=== PATIENT | female | born 1975 | race Caucasian/White ===

== ENCOUNTER 2019-04-30 17:10 | Inpatient (IN) | payer OTHER ==
[~2019-04-30] VITALS: Ht 160 cm; Wt 59.0 kg
[2019-04-30] MEDS ORDERED: NORT10CA PO (17:21)
[2019-04-30] MEDS ORDERED: ALPR0.255 PO (17:21)
[2019-04-30] MEDS ORDERED: CETI-102 PO (17:21)
--- NOTE | 2019-04-30 17:40 | NUR ---
at bedside to see and examine patient.
[2019-04-30] MEDS ORDERED: DIAZEPAM 2 MG TABLET PO ONE (18:00)
[2019-04-30 18:08] LABS: BASOPHILS % (AUTO) 0.2 % (0.0-2.0); EOSINOPHILS # (AUTO) 0.2 K/uL (0.0-0.7); EOSINOPHILS % (AUTO) 2.3 % (0.0-7.0); HEMATOCRIT 41.9 % (31.2-41.9); HEMOGLOBIN 13.8 g/dL (10.9-14.3); LYMPHOCYTES # (AUTO) 1.9 K/uL (20.0-40.0); LYMPHOCYTES % (AUTO) 24.7 % (20.5-51.5); MEAN CORPUSCULAR HEMOGLOBIN 30.8 uug (24.7-32.8); MEAN CORPUSCULAR HGB CONC 33 g/dL (32.3-35.6); MEAN CORPUSCULAR VOLUME 93.5 fL (75.5-95.3); MONOCYTES # (AUTO) 0.6 K/uL (2.0-10.0); MONOCYTES % (AUTO) 7.2 % (0.0-11.0); NEUTROPHILS # (AUTO) 5.1 K/uL (1.8-8.9); NEUTROPHILS % (AUTO) 65.6 % (38.5-71.5); PLATELET COUNT (AUTO) 171 K/uL (179-408); RED BLOOD CELL COUNT(AUTO) 4.49 MIL/uL (3.63-4.92); WHITE BLOOD COUNT (AUTO) 7.7 K/uL (3.8-11.8)
[2019-04-30 18:14] LABS: CREATININE 0.9 mg/dL (0.6-1.3); POTASSIUM 4.7 mmol/L (3.5-5.1)
[2019-04-30 18:25] LABS: BILIRUBIN,DIRECT 0.1 mg/dL (0.0-0.2); BILIRUBIN,TOTAL 0.4 mg/dL (0.2-1.0); TOTAL PROTEIN, SERUM 6.6 g/dL (6.4-8.2)
--- NOTE | 2019-04-30 18:30 | NUR ---
Patient seen by
[2019-04-30] MEDS ORDERED: DIAZEPAM 5 MG TABLET ONE (18:37)
--- NOTE | 2019-04-30 18:38 | NUR ---
Sterile urine cup was give. Clean catch urine was requested.
[2019-04-30 18:50] LABS: *BILIRUBIN,URIN 1+ (NEGATIVE); *BLOOD, URINE NEGATIVE (NEGATIVE); *COLOR,URINE YELLOW (YELLOW); *KETONES,URINE NEGATIVE (NEGATIVE); *UROBILINOGEN,URINE 0.2 E.U./dl (NORMAL); LEUKOCYTE ESTERASE ,URINE 1+ (NEGATIVE); NITRITE, URINE NEGATIVE (NEGATIVE); PH,URINE 8.5 (5.0-8.0); UGLUCOSE NEGATIVE (NEGATIVE)
[2019-04-30 18:54] LABS: *URINE HCG, QUAL NEGATIVE (NEGATIVE)
[2019-04-30 18:59] LABS: *CLARITY,URINE SLIGHTLY HAZY (CLEAR)
--- NOTE | 2019-04-30 19:00 | NUR ---
RECEIVED PT HAND OFF AND SBAR FROM OUTGOING DAY SHIFT RN
[2019-04-30 19:01] LABS: BACTERIA,URINE FEW /HPF (NONE SEEN); RBC,URINE 0-3 /HPF (0-3); SQUAMOUS EPITHELIAL CELL,UR MODERATE /HPF (NONE SEEN)
--- NOTE | 2019-04-30 19:13 | NUR ---
Report given to incoming R.N
[2019-04-30] MEDS ORDERED: CEFTRIAXONE 1 G in IV DEXTROSE 5% 50 ML IV ONE (19:45)
[2019-04-30] MEDS ORDERED: CEFTRIAXONE /D5W 50ML IVPB **ER PYXIS IV ONE (20:04)
--- NOTE | 2019-04-30 20:20 | NUR ---
PT WILL BE ADMITTED TO [facility] UNDER DR CASILLAS DUE TO BACK PAIN/ PYELONEPHRITIS
--- NOTE | 2019-04-30 20:45 | NUR ---
ATTEMPTED TO CALL FOR HAND OFF. PABLO STATES: "CARLIN RN DID NOT EVENT PRODUCER THE PHONE, MAYBE CARLIN RN NOT AVAILABLE. MAYBE HE IS BUSY WITH A PT AND WILL CALL YOU BACK " PT BELONGINGS SIGNED AND CONFIRMED. PT DENIES PAIN IF NOT AMBULATING/ MOVING/CHANING POSITION PT STATES DECREASED NAUSEA, DENIES EMESIS AT THIS TIME SIDERAILSX2 UP, BED AT LOWEST POSITION LEFT AC SALINE LOCK INTACT W/ G22
--- NOTE | 2019-04-30 21:10 | NUR ---
HAND OFF AND SBAR GIVEN TO CARLIN RN PT IS STILL ON SEMI BARAJAS'S, SUPINE, PT SIDERAILSX2 UP, BED AT LOWEST POSITION PT NAD DENIES PAIN AT THIS TIME WILL BE TRANSPORTED VIA [facility]
--- NOTE | 2019-04-30 21:25 | NUR ---
PT TRANSPORTED VIA GURNEY ACCOMPANIED BY ER HOSPICE AIDE SIDERAILSX2 UP, BED AT LOWEST POSITION ABLE TO TOLERATE CRACKERS PO
--- NOTE | 2019-04-30 21:50 | NUR ---
patient arrived on a gurney, ambulatory with a cane, steady gait, weakness in the right leg, fully oriented and coherent in conversation. Will begin assessment.
[2019-04-30] MEDS ORDERED: ZOLPIDEM 5 MG TABLET PO PRN (22:00)
[2019-04-30] MEDS ORDERED: ACETAMINOPHEN 325 MG TABLET PO PRN (22:00)
[2019-04-30] MEDS ORDERED: ONDANSETRON 4 MG/2 ML VIAL IV PRN (22:00)
[2019-04-30] MEDS ORDERED: Z GUARD REMEDY PASTE 57 GM TUBE TOP PRN (22:00)
[2019-04-30] MEDS ORDERED: MAGNESIUM HYDROXIDE 30 ML LIQUID UDC PO PRN (22:00)
[2019-04-30] MEDS ORDERED: KETOROLAC TROMETHAMINE 15 MG INJ IVP PRN (22:00)
[2019-04-30] MEDS: CEphaleXIN 500 MG CAPSULE PO SCH (22:14)
[2019-04-30] MEDS: HYDROCODONE/APAP 5-325MG TABLET PO PRN (22:15)
--- NOTE | 2019-04-30 22:20 | NUR ---
Patient went to CT via wheelchair.
[2019-04-30] MEDS: IV NS 1000 ML 1,000 ML IV PRN (22:41)
[2019-05-01] MEDS: CEphaleXIN 500 MG CAPSULE PO SCH ×3 (06:15→21:15)
--- NOTE | 2019-05-01 06:21 | NUR ---
patient slept well at night. Ambulated once to the bathroom with a cane, ate snacks and drank cranberry juice. Required a PRN Elsie before CT scan and PRN Tylenol for back pain early in the AM. Comfort and safety measures are in place.
[2019-05-01 06:38] LABS: BASOPHILS % (AUTO) 0.1 % (0.0-2.0); EOSINOPHILS # (AUTO) 0.1 K/uL (0.0-0.7); EOSINOPHILS % (AUTO) 2.8 % (0.0-7.0); HEMATOCRIT 37.9 % (31.2-41.9); HEMOGLOBIN 12.7 g/dL (10.9-14.3); LYMPHOCYTES # (AUTO) 1.8 K/uL (20.0-40.0); LYMPHOCYTES % (AUTO) 35.2 % (20.5-51.5); MEAN CORPUSCULAR HEMOGLOBIN 31.2 uug (24.7-32.8); MEAN CORPUSCULAR HGB CONC 33 g/dL (32.3-35.6); MEAN CORPUSCULAR VOLUME 93.3 fL (75.5-95.3); MONOCYTES # (AUTO) 0.4 K/uL (2.0-10.0); MONOCYTES % (AUTO) 7.8 % (0.0-11.0); NEUTROPHILS # (AUTO) 2.8 K/uL (1.8-8.9); NEUTROPHILS % (AUTO) 54.1 % (38.5-71.5); PLATELET COUNT (AUTO) 143 K/uL (179-408); RED BLOOD CELL COUNT(AUTO) 4.06 MIL/uL (3.63-4.92); WHITE BLOOD COUNT (AUTO) 5.2 K/uL (3.8-11.8)
[2019-05-01 06:52] LABS: CREATININE 0.8 mg/dL (0.6-1.3); MAGNESIUM 1.8 mg/dL (1.8-2.4); PHOSPHOROUS 3.4 mg/dL (2.5-4.9)
--- NOTE | 2019-05-01 07:30 | NUR ---
Received patient in Bed, awake and verbally responsive. No signs of distress noted. no SOB. On PRN Pain medication for Back Pain, No complain of Pain at this time. Left AC IV infusing well. No signs of Infiltration noted. Will continue to monitor.
[2019-05-01] MEDS: HYDROCODONE/APAP 5-325MG TABLET PO PRN ×3 (08:11→20:13)
[2019-05-01] MEDS: MORPHINE SULFATE 2 MG/1 ML DISP.SYRIN IV PRN (11:04)
[2019-05-01 11:30] VITALS: BP 137/53
[2019-05-01] MEDS: IV NS 1000 ML 1,000 ML IV PRN (12:13)
[2019-05-01] MEDS: ALPRAZOLAM 0.25 MG TABLET PO SCH ×2 (12:13→17:32)
--- NOTE | 2019-05-01 13:30 | NUR ---
Patient was picked up by 2 EMT in stable condition to transport to go to [facility] for MRI of the Spine without Contrast.
--- NOTE | 2019-05-01 14:47 | NUR ---
patient came back from [place] in stable condition.
[2019-05-01 15:55] VITALS: BP 106/52
--- NOTE | 2019-05-01 18:46 | NUR ---
Patient in Bed, awake and verbally responsive. No signs of Distress noted. No SOB. Pain medications given as ordered. IVF infusing well. No signs of Infiltration noted. patient went to [place] for MRI of Spine w/o Contrast. All due medications given as ordered. All needs attended and met. Will endorse to Oncoming Nurse.
[2019-05-01] MEDS: CETIRIZINE HCL 10 MG TABLET PO SCH (20:12)
[2019-05-01] MEDS: NORTRIPTYLINE HCL 10 MG CAPSULE PO SCH (20:40)
[2019-05-01 20:46] VITALS: BP 101/53
--- NOTE | 2019-05-01 20:50 | NUR ---
patient is in bed, fully oriented, good mood, cooperative with care. Back pain was reported and addressed with Potter. Snacks and beverages given, IV is patent. No distress noted. Comfort and safety measures are in place.
--- NOTE | 2019-05-01 21:15 | NUR ---
Patient was given a clean gown, pajama pants and socks, [employer]OGR[employer]HY [employer]AC[employer] MEMBER assisted with the change of clothes, patient tolerated well.
[2019-05-02] MEDS: IV NS 1000 ML 1,000 ML IV PRN ×2 (01:43→15:30)
[2019-05-02 04:48] VITALS: BP 105/52
[2019-05-02] MEDS: CEphaleXIN 500 MG CAPSULE PO SCH ×3 (05:59→21:49)
--- NOTE | 2019-05-02 07:15 | NUR ---
Received patient in bed, awake and verbally responsive. No signs of Respiratory distress noted. No SOB. No complain of Pain or discomfort at this time. IVF infusing well to Left AC, No signs of Infiltration noted. Will continue to monitor.
[2019-05-02] MEDS: ALPRAZOLAM 0.25 MG TABLET PO SCH ×2 (08:37→16:53)
[2019-05-02] MEDS: MORPHINE SULFATE 2 MG/1 ML DISP.SYRIN IV PRN (08:39)
[2019-05-02] MEDS ORDERED: methylPREDNISolone 1 PACK TAB.DS.PK [4MG TAB] PO ONE (09:15)
[2019-05-02] MEDS ORDERED: methylPREDNISolone 4 MG TABLET (DAY#1) PO ONE (09:30)
[2019-05-02 11:10] VITALS: BP 101/43
[2019-05-02] MEDS ORDERED: CYCLOBENZAPRINE HCL 10 MG TABLET PO PRN (11:15)
[2019-05-02] MEDS ORDERED: methylPREDNISolone 4 MG TABLET (DAY#1 PC LUNCH) PO ONE (12:30)
[2019-05-02] MEDS: HYDROCODONE/APAP 5-325MG TABLET PO PRN ×2 (14:30→21:49)
[2019-05-02 15:09] VITALS: BP 106/46
[2019-05-02] MEDS ORDERED: methylPREDNISolone 4 MG TABLET (DAY#1, PC DINNER) PO ONE (17:30)
--- NOTE | 2019-05-02 18:46 | NUR ---
Patient in bed, awake and verbally responsive, No signs of Distress noted. No SOB. Pain Medications given as ordered. Change IV site to Left hand gauge 22, IVF infusing well. no signs of Infiltration noted. All needs attended and met. will Endorse to Oncoming Nurse.
[2019-05-02 20:00] VITALS: BP 109/64
[2019-05-02] MEDS: NORTRIPTYLINE HCL 10 MG CAPSULE PO SCH (20:29)
[2019-05-02] MEDS: CETIRIZINE HCL 10 MG TABLET PO SCH (20:29)
[2019-05-02] MEDS ORDERED: methylPREDNISolone 4 MG TABLET (DAY#1, HS) PO ONE (21:00)
[2019-05-03] MEDS: IV NS 1000 ML 1,000 ML IV PRN ×2 (04:12→19:00)
[2019-05-03 04:46] VITALS: BP 97/42
[2019-05-03] MEDS: CEphaleXIN 500 MG CAPSULE PO SCH ×3 (05:47→21:13)
[2019-05-03 05:57] VITALS: BP 105/49
--- NOTE | 2019-05-03 06:10 | NUR ---
Patient slept well through out the night. No SOB noted, not in distress. IV site on L hand intact and patent w/ IVF infusing. All needs attended. Will endorse accordingly
[2019-05-03] MEDS ORDERED: methylPREDNISolone 4 MG TABLET (DAY#2, ACB) PO ONE (07:30)
--- NOTE | 2019-05-03 07:30 | NUR ---
Received patient in Bed, awake and verbally responsive. No signs of Distress noted. No complain of Pain or discomfort at this time. IVF infusing well to Left hand. Will continue to monitor.
[2019-05-03] MEDS: ALPRAZOLAM 0.25 MG TABLET PO SCH ×2 (09:04→17:06)
[2019-05-03] MEDS: HYDROCODONE/APAP 5-325MG TABLET PO PRN ×2 (09:05→21:13)
[2019-05-03 11:55] VITALS: BP 104/54
[2019-05-03] MEDS ORDERED: methylPREDNISolone 4 MG TABLET (DAY#2, PC LUNCH) PO ONE (12:30)
[2019-05-03 15:36] VITALS: BP 106/55
[2019-05-03] MEDS ORDERED: methylPREDNISolone 4 MG TABLET (DAY#2, PC DINNER) PO ONE (17:30)
--- NOTE | 2019-05-03 18:53 | NUR ---
Patient in Bed, awake and verbally responsive. No signs of Distress noted. Ambulate to restroom with cane. pain medications given as ordered. All due medications given as ordered. kept clean and comfortable. Will endorse to Oncoming Nurse.
--- NOTE | 2019-05-03 19:30 | NUR ---
Received patient in bed awake, A&Ox4. No SOB noted, not in distress. No complaints of pain at this time. IV site on L hand intact and patent w/ IVF infusing. Safety measures observed. Call light within reach
[2019-05-03 20:00] VITALS: BP 102/47
[2019-05-03] MEDS ORDERED: methylPREDNISolone 4 MG TABLET (DAY#2, HS) PO ONE (21:00)
[2019-05-03] MEDS: CETIRIZINE HCL 10 MG TABLET PO SCH (21:13)
[2019-05-03] MEDS: NORTRIPTYLINE HCL 10 MG CAPSULE PO SCH (21:13)
--- NOTE | 2019-05-03 22:00 | NUR ---
Patient seen by Dr. Owen (Neurosurgeon)
[2019-05-04 05:30] VITALS: BP 105/53
--- NOTE | 2019-05-04 06:34 | NUR ---
Patient slept well through out the night. No SOB noted. No complaints of pain at this time. IV site on L hand intact and patent w/ IVF infusing. All needs attended. Will endorse accordingly
[2019-05-04] MEDS: CEphaleXIN 500 MG CAPSULE PO SCH (06:39)
[2019-05-04] MEDS ORDERED: methylPREDNISolone 4 MG TABLET (DAY#3, ACB) PO ONE (07:30)
[2019-05-04] MEDS: ALPRAZOLAM 0.25 MG TABLET PO SCH (09:21)
[2019-05-04] MEDS: HYDROCODONE/APAP 5-325MG TABLET PO PRN ×2 (11:14→15:14)
[2019-05-04 11:31] VITALS: BP 122/47
[2019-05-04] MEDS ORDERED: methylPREDNISolone 4 MG TABLET (DAY#3, PC LUNCH) PO ONE (12:30)
[2019-05-04] MEDS ORDERED: CEPH-570 PO (13:43)
[2019-05-04] MEDS ORDERED: HYDR-3326 PO (13:43)
[2019-05-04 15:03] VITALS: BP 105/65
--- NOTE | 2019-05-04 16:00 | NUR ---
Pt is in no acute distress. Discharge instructions given to patient. PT verbalized understanding. Prescription given to patient. IV d/c catheter intact. Pt to f/u with primary doctor within 1 week. Pt denies any sob upon discharge.
[2019-05-04] MEDS ORDERED: methylPREDNISolone 4 MG TABLET (DAY#3, PC DINNER) PO ONE (17:30)
[2019-05-04] MEDS ORDERED: methylPREDNISolone 4 MG TABLET (DAY#3, HS) PO ONE (21:00)
[2019-05-05] MEDS ORDERED: methylPREDNISolone 4 MG TABLET (DAY#4, ACB) PO ONE (07:30)
[2019-05-05] MEDS ORDERED: methylPREDNISolone 4 MG TABLET (DAY#4, PC LUNCH) PO ONE (12:30)
[2019-05-05] MEDS ORDERED: methylPREDNISolone 4 MG TABLET (DAY#4, HS) PO ONE (21:00)
[2019-05-06] MEDS ORDERED: methylPREDNISolone 4 MG TABLET (DAY#5, ACB) PO ONE (07:30)
[2019-05-06] MEDS ORDERED: methylPREDNISolone 4 MG TABLET (DAY#5, HS) PO ONE (21:00)
[2019-05-07] MEDS ORDERED: methylPREDNISolone 4 MG TABLET (DAY#6, ACB) PO ONE (07:30)
== END 2019-05-04 17:30 | disposition home or self-care (01) | DRG 552 ==
LOC: ER 17:14 → MEDSURG3 21:13
PROVIDERS: ADMIT Nurse Practitioner Acute Care; ATTEND Nurse Practitioner Acute Care
DX: M51.17 Intervertebral disc disorders with radiculopathy, lumbosacral region (principal); N39.0 Urinary tract infection, site not specified; M48.07 Spinal stenosis, lumbosacral region; M06.9 Rheumatoid arthritis, unspecified; R20.8 Other disturbances of skin sensation; R20.2 Paresthesia of skin; F41.9 Anxiety disorder, unspecified; Z74.09 Other reduced mobility; M48.061 Spinal stenosis, lumbar region without neurogenic claudication; J45.909 Unspecified asthma, uncomplicated; G89.29 Other chronic pain; Z86.19 Personal history of other infectious and parasitic diseases; M71.30 Other bursal cyst, unspecified site
CPT/HCPCS: 36415; 72131; 72148; 83735; 84100; 84703; 85025; 87086; A4663; G0378; J0696; J2270; J7030; J7509

== ENCOUNTER 2019-09-30 20:37 | Emergency (ER) | payer OTHER ==
[~2019-09-30] VITALS: Ht 160 cm; Wt 58.1 kg
[~2019-09-30 20:37] MED LIST: ALPR0.255 PO; CEPH-570 PO; CETI-110 PO; HYDR-3326 PO; NORT10CA PO
[2019-09-30 21:19] LABS: BASOPHILS % (AUTO) 0.2 % (0.0-2.0); EOSINOPHILS # (AUTO) 0.1 K/uL (0.0-0.7); EOSINOPHILS % (AUTO) 1.5 % (0.0-7.0); HEMATOCRIT 42.6 % (31.2-41.9); HEMOGLOBIN 14.5 g/dL (10.9-14.3); LYMPHOCYTES # (AUTO) 2.1 K/uL (20.0-40.0); LYMPHOCYTES % (AUTO) 25.8 % (20.5-51.5); MEAN CORPUSCULAR HEMOGLOBIN 30.3 uug (24.7-32.8); MEAN CORPUSCULAR HGB CONC 34 g/dL (32.3-35.6); MEAN CORPUSCULAR VOLUME 89.1 fL (75.5-95.3); MONOCYTES # (AUTO) 0.6 K/uL (2.0-10.0); MONOCYTES % (AUTO) 7.3 % (0.0-11.0); NEUTROPHILS # (AUTO) 5.4 K/uL (1.8-8.9); NEUTROPHILS % (AUTO) 65.2 % (38.5-71.5); PLATELET COUNT (AUTO) 203 K/uL (179-408); RED BLOOD CELL COUNT(AUTO) 4.78 MIL/uL (3.63-4.92); WHITE BLOOD COUNT (AUTO) 8.2 K/uL (3.8-11.8)
[2019-09-30 21:41] LABS: CARBON DIOXIDE 24 mmol/L (21-32); CHLORIDE 105 mmol/L (98-107); CREATININE 0.7 mg/dL (0.6-1.3); GLUCOSE 100 mg/dL (74-106); POTASSIUM 3.8 mmol/L (3.5-5.1); UREA NITROGEN, BLOOD 13 mg/dL (7-18)
[2019-09-30 21:46] LABS: ALANINE AMINOTRANSFERASE 19 U/L (14-59); ALKALINE PHOSPHATASE 66 U/L (50-136); ASPARTATE AMINOTRANSFERASE 17 U/L (15-37); BILIRUBIN,DIRECT 0.1 mg/dL (0.0-0.2); BILIRUBIN,TOTAL 0.3 mg/dL (0.2-1.0); TOTAL PROTEIN, SERUM 7.1 g/dL (6.4-8.2)
--- NOTE | 2019-09-30 22:20 | NUR ---
Patient discharged to home in stable conditon. Written and verbal after care instructions given. Patient verbalizes understanding of instructions. ambulatory w/ stable gait all belongings w/ pt
[2019-09-30 22:21] VITALS: BP 108/75
== END 2019-09-30 22:27 | disposition home or self-care (01) ==
LOC: ER 20:41
DX: R00.2 Palpitations (principal); J45.909 Unspecified asthma, uncomplicated; Z91.011 Allergy to milk products; Z91.012 Allergy to eggs; Z88.2 Allergy status to sulfonamides; Z60.2 Problems related to living alone; Z79.899 Other long term (current) drug therapy
CPT/HCPCS: 36415; 70030-TC; 84443; 85025; 93005; A4663

== ENCOUNTER 2021-01-22 14:50 | Emergency (ER) | payer BC, OTHER ==
[~2021-01-22] VITALS: Ht 162.6 cm; Wt 68.0 kg
[~2021-01-22 14:50] MED LIST changes: -CETI-110 PO; +CETI-90 PO
[2021-01-22] MEDS ORDERED: predniSONE 50 MG TABLET PO ONE (15:45)
[2021-01-22] MEDS ORDERED: predniSONE 50 MG TABLET ONE (15:50)
--- NOTE | 2021-01-22 15:52 | NUR ---
Patient is resting comfortably on gurney with eyes closed, NAD
[2021-01-22 15:53] LABS: BASOPHILS % (AUTO) 0.4 % (0.0-2.0); HEMATOCRIT 37.8 % (31.2-41.9); HEMOGLOBIN 12.6 g/dL (10.9-14.3); LYMPHOCYTES % (AUTO) 13.2 % (20.5-51.5); MEAN CORPUSCULAR HEMOGLOBIN 29.8 uug (24.7-32.8); MEAN CORPUSCULAR HGB CONC 34 g/dL (32.3-35.6); MEAN CORPUSCULAR VOLUME 89.1 fL (75.5-95.3); MONOCYTES # (AUTO) 0.6 K/uL (2.0-10.0); MONOCYTES % (AUTO) 7.3 % (0.0-11.0); NEUTROPHILS # (AUTO) 6.1 K/uL (1.8-8.9); NEUTROPHILS % (AUTO) 79.1 % (38.5-71.5); PLATELET COUNT (AUTO) 236 K/uL (179-408); RED BLOOD CELL COUNT(AUTO) 4.24 MIL/uL (3.63-4.92); WHITE BLOOD COUNT (AUTO) 7.7 K/uL (3.8-11.8)
[2021-01-22 15:58] LABS: POTASSIUM 4.2 mmol/L (3.5-5.1)
[2021-01-22 16:03] LABS: BILIRUBIN,TOTAL 0.3 mg/dL (0.2-1.0); TOTAL PROTEIN, SERUM 7.1 g/dL (6.4-8.2)
[2021-01-22] MEDS ORDERED: PRED50TA PO (17:22)
--- NOTE | 2021-01-22 17:31 | NUR ---
Patient discharged to home in stable condition with brisk steady gait. Written and verbal after care instructions given to patient. Patient verbalized understanding & compliance of instructions. Stressed follow up iwht her pain management doctor or return to ER for worsening s/s.
== END 2021-01-22 17:31 | disposition home or self-care (01) ==
LOC: ER 14:54
DX: L51.9 Erythema multiforme, unspecified (principal); F39 Unspecified mood [affective] disorder; J45.909 Unspecified asthma, uncomplicated; Z88.2 Allergy status to sulfonamides; Z91.012 Allergy to eggs; Z91.011 Allergy to milk products; G89.4 Chronic pain syndrome; Z79.899 Other long term (current) drug therapy
CPT/HCPCS: 36415; 80053; 85025; 85730; 99283; J7512; A4663

== ENCOUNTER 2021-03-26 13:15 | Emergency (ER) | payer BC ==
[~2021-03-26] VITALS: Ht 162.6 cm; Wt 77.1 kg
[~2021-03-26 13:15] MED LIST changes: +PRED50TA PO
[2021-03-26] MEDS ORDERED: IV NORMAL SALINE 1000 ML BAG IV ONE (13:30)
[2021-03-26] MEDS ORDERED: ZANAFLEX (13:39)
[2021-03-26] MEDS ORDERED: GABAPENTIN (13:39)
[2021-03-26] MEDS ORDERED: HYDROCORTIZONE (13:39)
[2021-03-26] MEDS ORDERED: ALPRAZOLAM (13:39)
--- NOTE | 2021-03-26 13:39 | NUR ---
PT DOES NOT REMEMBER DOSAGES OF HER HOME MEDICATION.
[2021-03-26] MEDS ORDERED: CHARCOAL ACTIVATED (WITHOUT SORBITOL) 50 G/240 ML BOTTLE PO ONE (13:45)
[2021-03-26 14:08] LABS: HEMATOCRIT 34.2 % (31.2-41.9); MEAN CORPUSCULAR HEMOGLOBIN 29.8 uug (24.7-32.8); MEAN CORPUSCULAR VOLUME 88.9 fL (75.5-95.3); PLATELET COUNT (AUTO) 187 K/uL (179-408)
[2021-03-26 14:12] LABS: CARBON DIOXIDE 28 mmol/L (21-32); CHLORIDE 104 mmol/L (98-107); CREATININE 0.9 mg/dL (0.6-1.3); GLUCOSE 89 mg/dL (74-106); POTASSIUM 3.3 mmol/L (3.5-5.1); UREA NITROGEN, BLOOD 10 mg/dL (7-18)
[2021-03-26] MEDS ORDERED: CHARCOAL ACTIVATED (WITHOUT SORBITOL) 50 G/240 ML BOTTLE ONE (14:12)
[2021-03-26 14:16] LABS: ETHANOL < 3 MG/DL (0-0)
[2021-03-26 14:17] LABS: DIGOXIN < 0.2 ng/mL (0.9-2.0); MAGNESIUM 2.2 mg/dL (1.8-2.4)
[2021-03-26 14:19] LABS: ACETAMINOPHEN < 2.0 ug/mL (10-30); ALANINE AMINOTRANSFERASE 12 U/L (14-59); ALKALINE PHOSPHATASE 59 U/L (50-136); ASPARTATE AMINOTRANSFERASE 9 U/L (15-37); BILIRUBIN,DIRECT 0.1 mg/dL (0.0-0.2); BILIRUBIN,TOTAL 0.4 mg/dL (0.2-1.0); TOTAL PROTEIN, SERUM 5.3 g/dL (6.4-8.2)
--- NOTE | 2021-03-26 16:06 | NUR ---
pt sleeping, no distress noted.
[2021-03-26 18:16] LABS: *BILIRUBIN,URIN NEGATIVE (NEGATIVE); *BLOOD, URINE NEGATIVE (NEGATIVE); *CLARITY,URINE CLEAR (CLEAR); *COLOR,URINE YELLOW (YELLOW); *KETONES,URINE NEGATIVE (NEGATIVE); *UROBILINOGEN,URINE 0.2 E.U./dl (NORMAL); LEUKOCYTE ESTERASE ,URINE NEGATIVE (NEGATIVE); NITRITE, URINE NEGATIVE (NEGATIVE); PH,URINE 5.5 (5.0-8.0); UGLUCOSE NEGATIVE (NEGATIVE)
[2021-03-26 18:27] LABS: *AMPHETAMINE, URINE NEGATIVE (NEGATIVE); *CANNABINOID, URINE NEGATIVE (NEGATIVE); *COCCAINE, URINE NEGATIVE (NEGATIVE); *OPIATE, URINE NEGATIVE (NEGATIVE); *PHENCYCLIDINE SCREEN,URINE NEGATIVE (NEGATIVE)
--- NOTE | 2021-03-26 18:45 | NUR ---
Walked pt to restroom, finally gave urine sample. Pt had slightly unsteady gait, can d/c when she is steady, per MD. Gave pt dinner tray.
[2021-03-27 07:54] VITALS: BP 127/56
== END 2021-03-26 19:30 | disposition home or self-care (01) ==
LOC: ER 13:16
DX: T42.8X1A Poisoning by antiparkinsonism drugs and other central muscle-tone depressants, accidental (unintentional), initial encounter (principal); R53.1 Weakness; I95.2 Hypotension due to drugs; Y92.89 Other specified places as the place of occurrence of the external cause; R00.1 Bradycardia, unspecified; E87.6 Hypokalemia; Z88.8 Allergy status to other drugs, medicaments and biological substances; Z91.012 Allergy to eggs; Z91.011 Allergy to milk products; L50.9 Urticaria, unspecified
CPT/HCPCS: 36415; 70030-TC; 83735; 84100; 85025; 93005; A4663; G0480; J7030